=== PATIENT | male | born 1945 | race American Indian/Alaskan Native ===

== ENCOUNTER 2021-05-21 13:12 | Emergency (ER) | payer MEDICARE ==
[2021-05-21] MEDS ORDERED: cephALEXin 500 MG CAP PO ONE (13:33)
[2021-05-21] MEDS ORDERED: HYDROcodone/ACETAMINOPHEN 5-325 MG TAB PO ONE (13:33)
--- NOTE | 2021-05-21 13:51 | Emergency Department Report ---
ED Lower Extremity HPI - General Stated Complaint: LEFT FOOT PAIN Time Seen by Provider: 05/21/21 13:31 - History of Present Illness Initial Comments: Patient presents by ambulance secondary to left foot pain. He has a necrotic [facility] that [facility]. He has an appointment at the [facility] to see if they are going to amputate. He was given Tylenol for pain. It is not helping. He came here by ambulance. There is no new trauma. Has no new fevers or chills. He has noticed some increasing swelling. He is not particularly noticed any erythema, but he has been dressing his foot. Patient has no ankle pain or leg pain. He has no other rash. There is no other complaint. He states that as long as he had something for pain, he would "be good until next week." - Related Data Previous Rx's Medication Instructions Recorded Last Taken Type HYDROcodone/APAP 5-325 [[place] 1 each PO Q6HR PRN #15 tablet 05/21/21 Unknown Rx 5/325] cephALEXin [Keflex] 500 mg PO Q8HR #21 cap 05/21/21 Unknown Rx Allergies Allergy/AdvReac Type Severity Reaction Status Date / Time No Known Allergies Allergy Verified 05/21/21 13:56 ED Review of Systems ROS: Stated complaint: LEFT FOOT PAIN Other details as noted in HPI Comment: All other systems reviewed and negative Constitutional: denies: fever Eyes: denies: vision change ENT: denies: throat pain Respiratory: denies: cough Cardiovascular: denies: chest pain Endocrine: denies: unexplained weight loss Gastrointestinal: denies: abdominal pain Genitourinary: denies: dysuria Musculoskeletal: as per HPI Skin: denies: rash Neurological: denies: headache Hematological/Lymphatic: denies: easy bruising ED Past Medical Hx - Past Medical History Hx Hypertension: Yes Hx Diabetes: Yes - Family History Family history: diabetes - Medications Home Medications: Home Medications Medication Instructions Recorded Confirmed Last Taken Type HYDROcodone/APAP 5-325 [[place] 1 each PO Q6HR PRN #15 tablet 05/21/21 Unknown Rx 5/325] cephALEXin [Keflex] 500 mg PO Q8HR #21 cap 05/21/21 Unknown Rx ED Physical Exam - General Limitations: No Limitations, Other (Pulse ox noted and normal) General appearance: alert, in no apparent distress - Head Head exam: Present: atraumatic, normocephalic - Eye Eye exam: Present: normal appearance, EOMI - ENT ENT exam: Present: normal external ear exam - Neck Neck exam: Present: normal inspection. Absent: meningismus - Respiratory Respiratory exam: Present: normal lung sounds bilaterally. 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 There is edema to the other toes and the forefoot. There is mild erythema without warmth. There is no other ulcerative lesion noted, but the patient does have a large plantar ulcer adjacent to the great toe.). Absent: calf tenderness - Back Exam Back exam: Absent: CVA tenderness (R), CVA tenderness (L) - Neurological Exam Neurological exam: Present: alert, oriented X3, CN II-XII intact, reflexes normal, other (Decreased sensation to both feet) - Psychiatric Psychiatric exam: Present: normal affect, normal mood - Skin Skin exam: Present: warm, dry ED Course Vital Signs 05/21/21 05/21/21 13:55 14:24 Temperature 99.0 F Pulse Rate 75 Respiratory 16 18 Rate Blood Pressure 180/85 [Right] O2 Sat by Pulse 97 Oximetry - Reevaluation(s) Reevaluation #1: 05/21/21 16:48 Patient was treated upon EMS arrival and discharged. 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 He is here because he has been having pain for 2 months now. This has been managed at the [facility] for the last several months. He states that he simply wants analgesics and he is comfortable going home at that point. Patient does have some mild erythema associated with the swelling. There is no warmth. This could certainly be an early cellulitis. Patient was empirically started on antibiotics. We did discuss further treatment including possible admission. He declined and stated that [facility]. He does have the capacity to make this decision. Critical Care Time: No Critical care attestation.: If time is entered above; I have spent that time in minutes in the direct care of this critically ill patient, excluding procedure time. 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 Elevate the foot. Return for problems. [facility]. Prescriptions: cephALEXin [Keflex] 500 mg PO Q8HR #21 cap HYDROcodone/APAP 5-325 [[place] 5/325] 1 each PO Q6HR PRN #15 tablet PRN Reason: Pain Referrals: PRIMARY CARE, [Referring] - 3-5 Days
[2021-05-21 13:56] VITALS: BP 180/85
== END 2021-05-21 14:34 | disposition home or self-care (01) ==
LOC: ED 13:12
DX: L03.116 Cellulitis of left lower limb (principal); L97.523 Non-pressure chronic ulcer of other part of left foot with necrosis of muscle; E11.621 Type 2 diabetes mellitus with foot ulcer; I10 Essential (primary) hypertension; Z79.899 Other long term (current) drug therapy
CPT/HCPCS: 99283